=== PATIENT | female | born 1960 | race Caucasian/White ===

== ENCOUNTER 2019-04-20 09:46 | Observation (INO) | payer BC ==
[2019-04-20 10:37] LABS: ALT (SGPT) 11 U/L (8-55); AST (SGOT) 17 U/L (5-34); Albumin 3.7 g/dL (3.5-5.0); Alkaline Phosphatase 81 U/L (40-150); Anion Gap 15 mmol/L (10-20); BUN (Urea Nitrogen) 7 mg/dL (9.8-20.1); Bilirubin, Total 0.2 mg/dL (0.2-1.2); Calc. Creatinine Clearance 0 mL/min (70-130); Calcium 9.3 mg/dL (7.8-10.44); Carbon Dioxide 20 mmol/L (22-29); Chloride 106 mmol/L (98-107); Estimated GFR-MDRD 81; Globulin 2.6 g/dL (2.4-3.5); Glucose 100 mg/dL (70-105); Potassium 4.9 mmol/L (3.5-5.1); Protein, Total 6.3 g/dL (6.0-8.3); Sodium 136 mmol/L (136-145)
--- NOTE | 2019-04-20 10:43 | RAD ---
EXAM: Chest 2 views: HISTORY: Dyspnea COMPARISON: 03/18/2018 FINDINGS: Stable bilateral hyperinflation and chronic increased markings. Old granulomatous disease. Heart size:Within normal limits. Lungs:Clear of acute process. Atherosclerotic changes of the aorta. No confluent pneumonia, overt edema, pleural effusion, pneumothorax, or other significant acute proce ss. IMPRESSION: Atherosclerosis of the aorta. No acute intrathoracic disease.
[2019-04-20 10:54] LABS: Hemoglobin 7.6 g/dL (12.0-16.0); Mean Corpuscular HGB CONC 28.7 g/dL (32.0-36.0); Mean Corpuscular Hemoglobin 19.6 pg (27.0-31.0); Mean Corpuscular Volume 68.2 fL (78.0-98.0); Mean Platelet Volume 5.9 fL (7.4-10.4); Platelet Count 358 thou/uL (130-400); RBC Distribution Width 19.3 % (11.5-14.5); Red Blood Cell (RBC) Count 3.87 mill/uL (4.20-5.40); White Blood Cell (WBC) Count 7.9 thou/uL (4.8-10.8)
[2019-04-20 11:01] LABS: Anisocytosis SLIGHT = 6-15 cells (100X) (0-5/hpf); Hypochromia SLIGHT = 6-15 cells (100X) (0-5/hpf); Microcytosis SLIGHT = 6-15 cells (100X) (0-5/hpf); Ovalocytes SLIGHT = 2-5 cells (100X) (0-1/hpf); Poikilocytosis SLIGHT = 6-15 cells (100X) (0-5/hpf); Polychromasia SLIGHT = 2-3 cells (100X) (0-2/hpf); Target Cells SLIGHT = 2-5 cells (100X) (0-1/hpf)
[2019-04-20 11:03] LABS: #Lymphocytes 1.5 thou/uL (1.20-3.40); #Neutrophils 5.4 thou/uL (1.40-6.50); %Basophils 1.5 % (0.0-1.0); %Eosinophils 2.3 % (0.0-10.0); %Lymphocytes 18.9 % (21.0-51.0); %Monocytes 8.7 % (0.0-10.0); %Neutrophils 68.6 % (42.0-75.0)
[2019-04-20 11:04] LABS: #Basophils 0.1 thou/uL (0.0-0.2); #Eosinphils 0.2 thou/uL (0.0-0.7); #Monocytes 0.7 thou/uL (0.11-0.59)
[2019-04-20] MEDS ORDERED: diphenhydrAMINE 50 MG/ML VIAL IVP PRN (12:53)
[2019-04-20] MEDS ORDERED: Furosemide 20 MG/2 ML VIAL SLOW IVP PRN ×2 (12:54→17:13)
[2019-04-20] MEDS ORDERED: Acetaminophen 325 MG TAB PO SCH (13:00)
[2019-04-20] MEDS ORDERED: EPINEPHrine 1 MG/ML AMP IVP PRN (13:03)
[2019-04-20 13:37] VITALS: BMI 14.8
[2019-04-20 17:02] LABS: Iron 15 ug/dL (50-170); Iron Binding Capacity, Total 428 mcg/dL (265-497)
[2019-04-20] MEDS ORDERED: Furosemide 20 MG/2 ML VIAL SLOW IVP SCH (19:00)
[2019-04-20] MEDS ORDERED: Sodium Chloride 0.9% 10 ML ONE (19:15)
[2019-04-20 19:28] VITALS: BP 116/77
[2019-04-20 21:16] VITALS: TEMP 99
== END 2019-04-20 21:44 | disposition home or self-care (01) ==
LOC: NAV ERS 09:46 → NAV ACUTE 12:05
PROVIDERS: ADMIT Internal Medicine; ATTEND Internal Medicine
DX: D50.9 Iron deficiency anemia, unspecified (principal); I10 Essential (primary) hypertension; M81.0 Age-related osteoporosis without current pathological fracture; J44.9 Chronic obstructive pulmonary disease, unspecified; F41.9 Anxiety disorder, unspecified; F17.210 Nicotine dependence, cigarettes, uncomplicated; Z79.899 Other long term (current) drug therapy; Z90.3 Acquired absence of stomach [part of]; Z90.49 Acquired absence of other specified parts of digestive tract
CPT/HCPCS: 36415; 36430; 71046; 80053; 82607; 82746; 83540; 83550; 84484; 85025; 86850; 86900; 86901; 93005; G0378; J1940; P9016

== ENCOUNTER 2019-08-18 17:36 | Outpatient (CLI) | payer BC ==
--- NOTE | 2019-08-18 19:14 | RAD ---
THREE VIEWS THORACIC SPINE 08/18/19 HISTORY: Thoracic spine compression fracture. COMPARISON: CT pulmonary lung scan with sagittal imaging obtained through the thoracic spine on an exam obtained on 07/27/19. FINDINGS: The T12 vertebral body is excluded from view on the lateral projection. Vertebroplasty changes involv ing the T12 vertebral body are noted. There is a mild burst fracture involving the T11 vertebral body with stable degree of height loss compared to the prior CT examination. Mild compression fractures i nvolving the T5 and T7 vertebral bodies are noted again with stable degrees of height loss compared t o prior exam. There is slight right convexed curvature of the thoracolumbar spine. Multiple surgical clips overlie he left upper quadrant. Upper thoracic spine is obscured on the later al projection due to overlying osseous structures. IMPRESSION: 1. Stable mild compression fractures of the T5 and T7 vertebral bodies with stable height loss o f a burst fracture involving the T11 vertebral body. 2. Vertebroplasty changes involving the burst fracture of T12 vertebral body which is not imaged on the lateral projection. POS: [facility]
== END 2019-08-18 17:37 | disposition home or self-care (01) ==
LOC: NAV RAD 17:36
PROVIDERS: ATTEND Internal Medicine
DX: S22.000A Wedge compression fracture of unspecified thoracic vertebra, initial encounter for closed fracture (principal)
CPT/HCPCS: 72072